=== PATIENT | female | born 1980 | race Two or more races ===

== ENCOUNTER 2017-08-24 09:53 | Emergency (ER) | payer OTHER ==
[~2017-08-24] VITALS: Ht 157.5 cm; Wt 56.7 kg
[~2017-08-24 09:53] MED LIST: CIPRO500 MG PO; LEVSIN/SL0.125 MG PO; PROTONIX40 MG PO
== END 2017-08-24 13:30 | disposition home or self-care (01) ==
LOC: ER 09:53
DX: B34.9 Viral infection, unspecified (principal)

== ENCOUNTER 2025-05-05 09:00 | Outpatient (CLI) | payer OTHER | END 2025-05-05 09:09 | disposition home or self-care (01) | LOC: RAD 09:00 | DX: M54.2 Cervicalgia (principal); M54.6 Pain in thoracic spine; M54.50 Low back pain, unspecified ==